=== PATIENT | male | born 1960 | race Caucasian/White ===

== ENCOUNTER 2018-11-17 17:59 | Inpatient (IN) | payer OTHER, MEDICAID ==
[~2018-11-17] VITALS: Ht 170.2 cm; Wt 84.8 kg
[~2018-11-17 17:59] MED LIST: RISP1 PO
[2018-11-17] MEDS ORDERED: MIRT15 PO ×2 (18:09→19:52)
[2018-11-17] MEDS ORDERED: WARF3TAB29 PO (18:09)
[2018-11-17] MEDS ORDERED: blood pressure PO (18:09)
[2018-11-17] MEDS ORDERED: cholesterol PO (18:09)
[2018-11-17 19:53] LABS: BASOPHILS % (AUTO) 1.3 % (0.0-2.0); EOSINOPHILS % (AUTO) 1.6 % (1.0-6.0); HEMATOCRIT 46.3 % (41-53); HEMOGLOBIN 15.6 g/dL (13.5-17.5); LYMPHOCYTES # (AUTO) 1.6 K/uL (1.0-4.8); LYMPHOCYTES % (AUTO) 30.2 % (22.0-44.0); MEAN CORPUSCULAR HEMOGLOBIN 31.1 pg (26.0-34.0); MEAN CORPUSCULAR HGB CONC 33.6 G/dL (31.0-37.0); MEAN CORPUSCULAR VOLUME 93 fL (80-100); MONOCYTES # (AUTO) 0.7 K/uL (0.1-1.0); MONOCYTES % (AUTO) 12.5 % (2.0-9.0); NEUTROPHILS # (AUTO) 2.8 K/uL (1.8-7.7); NEUTROPHILS % (AUTO) 54.4 % (40.0-70.0); PLATELET COUNT (AUTO) 202 K/uL (150-450); RED CELL DISTRIBUTION WIDTH 14.2 % (11.5-14.5)
[2018-11-17 20:08] LABS: ANION GAP 8 mmol/L (8-16); CALCIUM, TOTAL 8.9 mg/dL (8.8-10.5); CARBON DIOXIDE 26 mmol/L (22-29); CHLORIDE 106 mmol/L (98-107); CREATININE 1.32 mg/dL (0.60-1.30); GLOMERULAR FILTR. RATE CALC 56 mL/min (>60); GLUCOSE,RANDOM 134 mg/dL (70-110); POTASSIUM 4.1 mmol/L (3.5-5.1); SODIUM SERUM 140 mmol/L (136-145); UREA NITROGEN, BLOOD 16 mg/dL (7-18)
[2018-11-17 20:14] LABS: ALANINE AMINOTRANSFERASE 41 U/L (12-78); ALBUMIN 4.3 g/dL (3.4-5.0); ALKALINE PHOSPHATASE 72 U/L (46-116); ASPARTATE AMINOTRANSFERASE 30 U/L (15-37); TOTAL PROTEIN, SERUM 7.6 g/dL (6.4-8.2)
[2018-11-17] MEDS ORDERED: MIRTAZAPINE 15 MG TABLET PO ONE (20:15)
[2018-11-17] MEDS ORDERED: RisperiDONE 1 MG TABLET PO ONE (20:15)
[2018-11-17] MEDS ORDERED: HALOPERIDOL 5 MG TABLET PO PRN (20:30)
[2018-11-17 20:31] LABS: INR 3.1 (0.9-1.1); PROTHROMBIN TIME 31.4 SEC (9.4-11.6)
[2018-11-17 20:31] LABS: AMPHET/METH SCREEN,URINE NEGATIVE (NEGATIVE); BARBITURATE SCREEN, URINE NEGATIVE (NEGATIVE); BENZODIAZEPINES SCREEN,URINE NEGATIVE (NEGATIVE); CANNABINOID SCREEN,URINE NEGATIVE (NEGATIVE); COCAINE SCREEN,URINE NEGATIVE (NEGATIVE); METHADONE SCREEN, URINE NEGATIVE (NEGATIVE); OPIATE SCREEN,URINE NEGATIVE (NEGATIVE); PHENCYCLIDINE SCREEN,URINE NEGATIVE (NEGATIVE)
[2018-11-17 21:10] LABS: APPEARANCE,URINE CLEAR (CLEAR); BILIRUBIN,URINE NEGATIVE (NEGATIVE); GLUCOSE, URINE (UA) NEGATIVE (NEGATIVE); KETONES,URINE NEGATIVE (NEGATIVE); LEUKOCYTE ESTERASE ,URINE NEGATIVE (NEGATIVE); NITRATE,URINE NEGATIVE (NEGATIVE); OCCULT BLOOD,URINE NEGATIVE (NEGATIVE); PROTEIN,URINE NEGATIVE (NEGATIVE)
[2018-11-17 22:13] VITALS: BP 142/92
[2018-11-17] MEDS: ZOLPIDEM TARTRATE 10 MG TABLET PO PRN (22:42)
[2018-11-17] MEDS ORDERED: PNEUMOCOCCAL VACCINE POLYVALENT 0.5 ML VIAL [PPSV23] IM ONE (23:00)
[2018-11-17] MEDS ORDERED: ALBUTEROL SULFATE HFA 90 MCG/PUFF 8 GM INHALER IH PRN (23:15)
[2018-11-17] MEDS ORDERED: MAGNESIUM HYDROXIDE SUSPENSION 30 ML UDCUP PO PRN (23:15)
[2018-11-17] MEDS ORDERED: PETROLATUM,WHITE 28 GM JELLY TP PRN (23:15)
[2018-11-17] MEDS ORDERED: GuaiFENesin/D-METHORPHAN [SUGAR-FREE] 200-20MG/10 ML SYRUP UDCUP PO PRN (23:15)
[2018-11-17] MEDS ORDERED: LOPERAMIDE HCL 2 MG CAPSULE PO PRN (23:15)
[2018-11-17] MEDS ORDERED: ONDANSETRON HCL 4 MG TABLET PO PRN (23:15)
[2018-11-17] MEDS ORDERED: ACETAMINOPHEN 325 MG TABLET PO PRN (23:15)
[2018-11-17] MEDS ORDERED: NICOTINE 14 MG/24 HOUR PATCH TD PRN (23:15)
[2018-11-17] MEDS ORDERED: DOCUSATE SODIUM 100 MG CAPSULE PO PRN (23:15)
[2018-11-17] MEDS ORDERED: IBUPROFEN 400 MG TABLET PO PRN (23:15)
[2018-11-17] MEDS ORDERED: CloNIDine HCL 0.1 MG TABLET PO PRN (23:15)
[2018-11-17] MEDS ORDERED: MAG HYDROX/AL HYDROX/SIMETH ES 30 ML SUSPENSION UDCUP PO PRN (23:15)
[2018-11-18 00:15] VITALS: BP 137/74
[2018-11-18 03:02] VITALS: BP 154/100
[2018-11-18] MEDS: LORazepam 2 MG TABLET PO PRN (03:02)
[2018-11-18 08:18] VITALS: BP 140/94
[2018-11-18 08:27] LABS: BASOPHILS % (AUTO) 1.2 % (0.0-2.0); HEMATOCRIT 44.9 % (41-53); HEMOGLOBIN 15.1 g/dL (13.5-17.5); LYMPHOCYTES # (AUTO) 1.2 K/uL (1.0-4.8); LYMPHOCYTES % (AUTO) 22.7 % (22.0-44.0); MEAN CORPUSCULAR HEMOGLOBIN 30.7 pg (26.0-34.0); MEAN CORPUSCULAR HGB CONC 33.6 G/dL (31.0-37.0); MEAN CORPUSCULAR VOLUME 91 fL (80-100); MONOCYTES # (AUTO) 0.7 K/uL (0.1-1.0); MONOCYTES % (AUTO) 13.6 % (2.0-9.0); NEUTROPHILS # (AUTO) 3.2 K/uL (1.8-7.7); NEUTROPHILS % (AUTO) 60.5 % (40.0-70.0); PLATELET COUNT (AUTO) 197 K/uL (150-450); RED BLOOD CELL COUNT(AUTO) 4.92 MIL/uL (4.50-5.90); RED CELL DISTRIBUTION WIDTH 14.1 % (11.5-14.5)
[2018-11-18 08:47] LABS: HEMOGLOBIN A1C 5.7 % (4.5-6.2)
[2018-11-18 08:54] LABS: ALBUMIN 4.2 g/dL (3.4-5.0); CHOL/HDL RATIO 3.2 (4.2-7.3); CREATININE 1.33 mg/dL (0.60-1.30); THYROID STIMULATING HORMONE 2.85 uIU/mL (0.36-3.74); TOTAL PROTEIN, SERUM 7.1 g/dL (6.4-8.2)
[2018-11-18] MEDS: ESCITALOPRAM OXALATE 10 MG TABLET PO SCH (13:10)
[2018-11-18] MEDS: RisperiDONE 1 MG TABLET PO SCH (13:10)
[2018-11-18 13:15] VITALS: BP 126/81
[2018-11-18 16:22] VITALS: BP 114/70
[2018-11-18] MEDS: WARFARIN SODIUM 5 MG TABLET PO SCH (17:07)
[2018-11-18] MEDS: RisperiDONE 2 MG TABLET PO SCH (20:05)
[2018-11-18] MEDS: MIRTAZAPINE 15 MG TABLET PO SCH (20:05)
[2018-11-19 06:39] VITALS: BP 156/101
[2018-11-19] MEDS: ESCITALOPRAM OXALATE 10 MG TABLET PO SCH (08:15)
[2018-11-19] MEDS: RisperiDONE 1 MG TABLET PO SCH (08:15)
[2018-11-19 08:32] VITALS: BP 154/96
[2018-11-19 09:01] LABS: INR 2.2 (0.9-1.1); PROTHROMBIN TIME 22.7 SEC (9.4-11.6)
[2018-11-19 10:00] VITALS: BP 135/81
[2018-11-19] MEDS: WARFARIN SODIUM 5 MG TABLET PO SCH (16:35)
[2018-11-19 16:45] VITALS: BP 144/93
[2018-11-19] MEDS: RisperiDONE 2 MG TABLET PO SCH (20:47)
[2018-11-19] MEDS: MIRTAZAPINE 15 MG TABLET PO SCH (20:47)
[2018-11-20 05:34] VITALS: BP 107/80
[2018-11-20 08:24] VITALS: BP 126/87
[2018-11-20] MEDS: RisperiDONE 1 MG TABLET PO SCH (08:35)
[2018-11-20] MEDS: ESCITALOPRAM OXALATE 10 MG TABLET PO SCH (08:35)
[2018-11-20] MEDS ORDERED: NITROGLYCERIN 0.4 MG SUBLINGUAL TABLET #25 SL ONE (14:30)
[2018-11-20 16:23] VITALS: BP 134/96
[2018-11-20] MEDS: WARFARIN SODIUM 5 MG TABLET PO SCH (16:56)
[2018-11-20] MEDS: RisperiDONE 2 MG TABLET PO SCH (20:44)
[2018-11-20] MEDS: MIRTAZAPINE 15 MG TABLET PO SCH (20:44)
[2018-11-21 06:37] VITALS: BP 132/92
[2018-11-21] MEDS: ESCITALOPRAM OXALATE 10 MG TABLET PO SCH (08:25)
[2018-11-21] MEDS: RisperiDONE 1 MG TABLET PO SCH (08:25)
[2018-11-21 08:33] VITALS: BP 117/89
[2018-11-21] MEDS: WARFARIN SODIUM 5 MG TABLET PO SCH (16:16)
[2018-11-21 16:21] VITALS: BP 144/96
[2018-11-21] MEDS: LORazepam 2 MG TABLET PO PRN (16:32)
[2018-11-21 18:00] VITALS: BP 132/88
[2018-11-21] MEDS: RisperiDONE 2 MG TABLET PO SCH (20:13)
[2018-11-21] MEDS: MIRTAZAPINE 15 MG TABLET PO SCH (20:13)
[2018-11-22 07:07] VITALS: BP 119/80
[2018-11-22 08:05] VITALS: BP 137/75
[2018-11-22] MEDS: RisperiDONE 1 MG TABLET PO SCH (08:14)
[2018-11-22] MEDS: ESCITALOPRAM OXALATE 10 MG TABLET PO SCH (08:14)
[2018-11-22] MEDS: LORazepam 2 MG TABLET PO PRN (08:15)
[2018-11-22 16:11] VITALS: BP 140/90
[2018-11-22] MEDS: WARFARIN SODIUM 5 MG TABLET PO SCH (16:18)
[2018-11-22] MEDS: MIRTAZAPINE 15 MG TABLET PO SCH (20:04)
[2018-11-22] MEDS: RisperiDONE 2 MG TABLET PO SCH (20:04)
[2018-11-23 02:41] VITALS: BP 119/72
[2018-11-23 08:00] VITALS: BP 144/99
[2018-11-23] MEDS: ESCITALOPRAM OXALATE 10 MG TABLET PO SCH (08:33)
[2018-11-23] MEDS: RisperiDONE 1 MG TABLET PO SCH (08:34)
[2018-11-23 16:15] VITALS: BP 134/89
[2018-11-23] MEDS: WARFARIN SODIUM 5 MG TABLET PO SCH (16:49)
[2018-11-23] MEDS: MIRTAZAPINE 15 MG TABLET PO SCH (20:42)
[2018-11-23] MEDS: RisperiDONE 2 MG TABLET PO SCH (20:42)
[2018-11-24] MEDS: LORazepam 2 MG TABLET PO PRN (01:34)
[2018-11-24] MEDS: ZOLPIDEM TARTRATE 10 MG TABLET PO PRN (01:34)
[2018-11-24 02:25] VITALS: BP 143/93
[2018-11-24] MEDS: RisperiDONE 1 MG TABLET PO SCH (08:28)
[2018-11-24] MEDS: ESCITALOPRAM OXALATE 10 MG TABLET PO SCH (08:28)
[2018-11-24 09:08] VITALS: BP 125/85
[2018-11-24] MEDS: WARFARIN SODIUM 5 MG TABLET PO SCH (16:48)
[2018-11-24 16:50] VITALS: BP 123/79
[2018-11-24] MEDS: RisperiDONE 2 MG TABLET PO SCH (20:33)
[2018-11-24] MEDS: MIRTAZAPINE 15 MG TABLET PO SCH (20:33)
[2018-11-25 05:11] VITALS: BP 130/82
[2018-11-25 08:00] VITALS: BP 122/81
[2018-11-25] MEDS: ESCITALOPRAM OXALATE 10 MG TABLET PO SCH (08:09)
[2018-11-25] MEDS: RisperiDONE 2 MG TABLET PO SCH (08:09)
[2018-11-25] MEDS ORDERED: WARF5 PO (12:13)
[2018-11-25] MEDS ORDERED: RISP2 PO (12:13)
[2018-11-25] MEDS ORDERED: ESCI10TA PO (12:13)
[2018-11-25 16:12] VITALS: BP 140/77
[2018-11-25] MEDS: WARFARIN SODIUM 5 MG TABLET PO SCH (16:12)
== END 2018-11-25 17:00 | disposition home or self-care (01) | DRG 885 ==
LOC: EMS 17:59 → B2X 21:00
DX: F25.1 Schizoaffective disorder, depressive type (principal); R45.851 Suicidal ideations; I69.354 Hemiplegia and hemiparesis following cerebral infarction affecting left non-dominant side; E78.5 Hyperlipidemia, unspecified; E78.00 Pure hypercholesterolemia, unspecified; R45.850 Homicidal ideations; I50.9 Heart failure, unspecified; I48.2 Chronic atrial fibrillation; I11.0 Hypertensive heart disease with heart failure; F19.10 Other psychoactive substance abuse, uncomplicated; Z95.2 Presence of prosthetic heart valve; Z95.0 Presence of cardiac pacemaker; Z91.5 Personal history of self-harm; Z79.899 Other long term (current) drug therapy; Z79.01 Long term (current) use of anticoagulants; Z71.51 Drug abuse counseling and surveillance of drug abuser
CPT/HCPCS: 83036; 84443; 87081; G0480